=== PATIENT | male | born 1960 | race Caucasian/White ===

== ENCOUNTER 2017-03-22 11:33 | Emergency (ER) | payer OTHER ==
[2017-03-22] MEDS ORDERED: Diphtheria,Pertussis(Acell),Tetanus Vaccine 0.5 ML Syringe IM ONE (12:15)
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
[2017-03-22] MEDS ORDERED: Bacitracin Oint 1 GM U/D Packet ONE (12:45)
[2017-03-22] MEDS ORDERED: Bacitracin Oint 1 GM U/D Packet TOP ONE (12:46)
== END 2017-03-22 12:47 | disposition home or self-care (01) ==
LOC: MW.ED 11:33
DX: T20.34XA Burn of third degree of nose (septum), initial encounter (principal); T20.24XA Burn of second degree of nose (septum), initial encounter; T20.26XA Burn of second degree of forehead and cheek, initial encounter; F17.210 Nicotine dependence, cigarettes, uncomplicated; Z99.81 Dependence on supplemental oxygen; Z23 Encounter for immunization; W40.8XXA Explosion of other specified explosive materials, initial encounter
CPT/HCPCS: 90471; 90715; 99283; 99283-25